=== PATIENT | female | born 1965 | race Caucasian/White ===

== ENCOUNTER 2021-01-28 13:43 | Inpatient (IN) | payer OTHER ==
[~2021-01-28] VITALS: Ht 157.5 cm; Wt 58.1 kg
[2021-01-28 13:46] VITALS: Ht 157.5 cm; Wt 58.1 kg
[2021-01-28 14:25] LABS: BASOPHIL % 0.6 % (0.2-1.3); PLATELET COUNT 315 x10^3mcL (179-408); RED CELL DISTRIBUTION WIDTH 13.3 % (12.3-17.7)
[2021-01-28 15:03] LABS: microscopic required? NO
[2021-01-28 15:12] LABS: urine erythrocyte NEGATIVE (NEGATIVE)
[2021-01-28 15:26] LABS: CALCIUM 8.5 mg/dL (8.5-10.1); CARBON DIOXIDE 27.6 mmol/L (21-32); CHLORIDE SERUM 103 mmol/L (98-107); CREATININE SERUM 0.9 mg/dL (0.6-1.0); GFR1 > 60 mL/min; GLUCOSE SERUM 105 mg/dL (74-106); POTASSIUM SERUM 4.2 mmol/L (3.5-5.1); SODIUM SERUM 141 mmol/L (136-145)
[2021-01-28 15:30] LABS: ALBUMIN 3.8 g/dL (3.4-5.0); ALKALINE PHOSPHATASE 104 U/L (46-116); ALT/SGPT 30 U/L (14-59); AST/SGOT 18 U/L (15-37); BILIRUBIN TOTAL 0.21 mg/dL (0.20-1.00); LIPASE 157 IU/L (73-393); TOTAL PROTEIN, SERUM 7.8 g/dL (6.4-8.2)
[2021-01-28] MEDS ORDERED: DRAMAMINE LESS25 MG PO (15:42)
[2021-01-28 19:25] VITALS: BP 135/72
[2021-01-29 06:10] VITALS: BP 113/62
[2021-01-29 06:30] LABS: BASOPHIL % 0.6 % (0.2-1.3); PLATELET COUNT 282 x10^3mcL (179-408); RED CELL DISTRIBUTION WIDTH 13.4 % (12.3-17.7)
[2021-01-29 07:20] LABS: ALKALINE PHOSPHATASE 88 U/L (46-116); ALT/SGPT 30 U/L (14-59); AST/SGOT 20 U/L (15-37); BILIRUBIN TOTAL 0.2 mg/dL (0.20-1.00); CALCIUM 8.1 mg/dL (8.5-10.1); CARBON DIOXIDE 28.5 mmol/L (21-32); CHLORIDE SERUM 105 mmol/L (98-107); CREATININE SERUM 0.6 mg/dL (0.6-1.0); GFR1 > 60 mL/min; GLUCOSE SERUM 102 mg/dL (74-106); MAGNESIUM 2.1 mg/dL (1.8-2.4); POTASSIUM SERUM 4.1 mmol/L (3.5-5.1); SODIUM SERUM 140 mmol/L (136-145); TOTAL PROTEIN, SERUM 6.8 g/dL (6.4-8.2)
[2021-01-29 07:26] LABS: ALBUMIN 3.3 g/dL (3.4-5.0)
[2021-01-29 08:37] VITALS: BP 125/77
[2021-01-29 12:23] VITALS: BP 110/63
[2021-01-29 13:59] VITALS: BP 125/77
== END 2021-01-29 15:38 | disposition home or self-care (01) | DRG 111 ==
LOC: ED 13:43 → DU 17:09
PROVIDERS: ADMIT Hospitalist; ATTEND Student in an Organized Health Care Education/Training Program
DX: R42 Dizziness and giddiness (principal); E78.5 Hyperlipidemia, unspecified; Z20.822 Contact with and (suspected) exposure to COVID-19
CPT/HCPCS: 83880; 97116-GP; G0378; J1644; J3475; J7030; J7050; J8597; Q9967